=== PATIENT | male | born 1955 | race Caucasian/White ===

== ENCOUNTER → 2022-12-12 | Outpatient (CLI) | payer MEDICARE, SELFPAY ==
--- NOTE | 2022-12-12 16:51 | CT_ITS ---
INDICATION: abdominal pain --left-sided times months. History of testicular cancer 30 years previous EXAMINATION: CT ABDOMEN AND PELVIS WITH CONTRAST - CT Abdomen And Pelvis W/ Contrast Injection TECHNIQUE: Helically acquired images were obtained of the abdomen and pelvis following IV contrast. A radiation dose optimization technique was used for this scan. IV Contrast dosage and agent: 75 mL Isovue-370 Oral contrast: Administered. COMPARISON: Lumbar radiograph August 11, 2016. FINDINGS: LOWER CHEST: Lung bases are clear. No cardiomegaly or pericardial effusion. LIVER: Homogeneous. No focal mass. GALLBLADDER AND BILIARY TREE: No calcified gallstones. No gallbladder distension or wall edema. No intra- or extrahepatic biliary ductal dilation. PANCREAS: No focal cystic or solid mass. SPLEEN: Normal size without focal cystic or solid mass. ADRENAL GLANDS: No nodules. KIDNEYS AND URETERS: 1 and 2 mm left lower pole nonobstructing stones. No hydronephrosis. No evidence of renal cortical mass. Mild nonspecific bilateral perinephric stranding. No ureteral dilatation or evidence of stone. Unremarkable bladder. PERITONEUM: No ascites or free air. No other fluid collection. BOWEL: No acute gastric finding. No small bowel distention or focal wall thickening. Normal appendix. Large colonic stool burden cecum to rectum. No gross colonic wall thickening or surrounding inflammation. LYMPH NODES: No enlarged mesenteric or retroperitoneal lymph nodes. VESSELS: Aortic atherosclerosis without ectasia or dissection.. ABDOMINAL WALL: No discrete abdominal or pelvic wall hernia. Left inguinal surgical clips are noted. BONES: No lytic or blastic abnormality. Severe facet arthropathy L4-L5 with degenerative grade 1 anterolisthesis causing moderate spinal canal stenosis and moderate to severe bilateral neural foraminal stenosis. Concern for posterior superior disc extrusion at L5-S1 with moderate spinal stenosis and moderate to severe neural foraminal stenosis. CT/Abdomen/Pelvis WITH Contrast IMPRESSION: Large colonic stool burden as can be seen with constipation. Nonobstructive left nephrolithiasis. No hydronephrosis or ureteral stone. Mild bilateral perinephric inflammatory stranding which is nonspecific and is commonly senescent in the absence of cortical changes. Correlate with urine to exclude pyelonephritis. Facet arthropathy and degenerative disc changes at L4-5 and L5-S1 with chronic grade 1 L4-5 listhesis. Concern for underlying moderate to severe spinal canal and neural foraminal stenosis. Correlate with exam. Lumbar spine MRI could further evaluate. Electronically Signed: Estiven Vásquez MD at 9:02 EDT ,
[2022-12-12 17:16] LABS: CREATININE FINGERSTICK < 0.9 mg/dL (0.70-1.30); EGFR FINGERSTICK > 60.0000 mL/min (>60)
== END | disposition home or self-care (01) ==
LOC: CT 16:48
PROVIDERS: PCP Internal Medicine; Referring Provider Internal Medicine; Visit Provider Internal Medicine
DX: R10.9 Unspecified abdominal pain (principal)
CPT/HCPCS: 74177; Q9967